=== PATIENT | female | born 1995 | race African-American/Black ===

== ENCOUNTER 2022-02-08 04:55 | Emergency (ER) | payer OTHER ==
[~2022-02-08] VITALS: Ht 170.2 cm; Wt 100.0 kg
[2022-02-08 05:11] VITALS: BP 128/79
[2022-02-08 06:46] LABS: BASOPHILS % 0.3 % (0.0-2.0); EOSINOPHILS % 0.7 % (0.0-5.0); HEMATOCRIT. 37.8 % (36.0-48.0); HEMOGLOBIN. 12.4 g/dL (12.0-16.0); LYMPHOCYTES % 29.1 % (20.0-50.0); MEAN CORPUSCULAR HEMOGLOBIN 27.2 pg (28.0-32.0); MEAN CORPUSCULAR VOLUME 82.8 fL (81.0-99.0); MEAN PLATELET VOLUME 9.6 fl (7.4-10.4); MONOCYTES % 5.6 % (2.0-8.0); NEUTROPHILS % 64.3 % (40.0-76.0); PLATELET 305 x1000/uL (130-400); RED BLOOD CELL COUNT 4.57 mill/uL (4.2-5.4); RED CELL DISTRIBUTION WIDTH 14.5 % (11.6-14.6)
[2022-02-08] MEDS ORDERED: IOHEXOL-350 100 ML BOTTLE ONE (10:26)
== END 2022-02-08 10:51 | disposition home or self-care (01) ==
LOC: ER 04:55
DX: R06.00 Dyspnea, unspecified (principal); H93.11 Tinnitus, right ear; I10 Essential (primary) hypertension
CPT/HCPCS: 36415; 71045; 71275; 80053; 81025; 85025; 85379; 99285; Q9967